=== PATIENT | male | born 1945 | race Caucasian/White ===

== ENCOUNTER 2017-04-25 19:48 | Emergency (ER) | payer MEDICARE, BC ==
[2017-04-25] MEDS ORDERED: SODIUM CHLORIDE 0.9% 1,000 ML IV ONE (20:38)
--- NOTE | 2017-04-25 20:38 | ED ---
General Adult HPI - General Chief complaint: Extremity Injury, Lower Stated complaint: Lower Extremity Injury Time Seen by Provider: 04/25/17 19:52 Source: EMS, RN notes reviewed, old records reviewed Mode of arrival: EMS Limitations: no limitations - History of Present Illness Initial comments: This is a 72-year-old male to the ER for evaluation. Patient is coming in for evaluation regarding right leg pain. Patient is slipper earlier hasn't right hip dislocation. 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 Patient is accepted in transfer after failed reduction at separate hospital - Related Data Home Medications Medication Instructions Recorded Confirmed Aspirin 325 mg PO DAILY 04/25/17 04/25/17 Betamethasone Dipropionate 1 applic TOPICAL DAILY 04/25/17 04/25/17 [Diprolene 0.05% Lotion] Calcipotriene [Dovonex] 1 applic TOPICAL BID 04/25/17 04/25/17 Clobetasol Propionate [Temovate 1 applic TOPICAL DAILY 04/25/17 04/25/17 0.05% Cream] Dicyclomine [Bentyl] 10 mg PO TID PRN 04/25/17 04/25/17 Fenofibrate Nanocrystallized 145 mg PO DAILY 04/25/17 04/25/17 [Tricor] Hyoscyamine Sulfate [Levsin] 0.125 mg PO Q4-6H PRN 04/25/17 04/25/17 Sildenafil Citrate [Viagra] 50 mg PO ONCE PRN 04/25/17 04/25/17 traZODone HCL 50 mg PO HS 04/25/17 04/25/17 Allergies Allergy/AdvReac Type Severity Reaction Status Date / Time No Known Allergies Allergy Unverified 04/25/17 20:21 Review of Systems ROS Statement: Those systems with pertinent positive or pertinent negative responses have been documented in the HPI. ROS Other: All systems not noted in ROS Statement are negative. Past Medical History Additional Past Medical History / Comment(s): colitis, sleep deprevation and high Triglycerides. History of Any Multi-Drug Resistant Organisms: None Reported Past Surgical History: Orthopedic Surgery Past Psychological History: No Psychological Hx Reported Smoking Status: Never smoker Past Alcohol Use History: Daily Past Drug Use History: None Reported General Exam - General Exam Comments Initial Comments: Right hip deformity Limitations: no limitations General appearance: alert, in no apparent distress Head exam: Present: atraumatic, normocephalic, normal inspection Eye exam: Present: normal appearance, PERRL, EOMI. Absent: scleral icterus, conjunctival injection, periorbital swelling ENT exam: Present: normal exam, mucous membranes moist Neck exam: Present: normal inspection. Absent: tenderness, meningismus, lymphadenopathy Respiratory exam: Present: normal lung sounds bilaterally. Absent: respiratory distress, wheezes, rales, rhonchi, stridor Cardiovascular Exam: Present: regular rate, normal rhythm, normal heart sounds. Absent: systolic murmur, diastolic murmur, rubs, gallop, clicks GI/Abdominal exam: Present: soft, normal bowel sounds. Absent: distended, tenderness, guarding, rebound, rigid Extremities exam: Present: normal inspection, full ROM, normal capillary refill. Absent: tenderness, pedal edema, joint swelling, calf tenderness Back exam: Present: normal inspection Neurological exam: Present: alert, oriented X3, CN II-XII intact Psychiatric exam: Present: normal affect, normal mood Skin exam: Present: warm, dry, intact, normal color. Absent: rash Course Vital Signs 04/25/17 04/25/17 04/25/17 19:51 21:07 21:15 Temperature 98.7 F Pulse Rate 69 80 75 Respiratory 18 20 Rate Blood Pressure 150/80 165/78 139/66 O2 Sat by Pulse 95 97 97 Oximetry 04/25/17 04/25/17 21:42 21:52 Temperature 97 F L Pulse Rate 77 78 Respiratory 16 18 Rate Blood Pressure 136/76 137/68 O2 Sat by Pulse 97 97 Oximetry - Reevaluation(s) Reevaluation #1: Spoke with orthopedics or N ER evaluating patient, they did and were able to replace hip under conscious sedation Procedures - Procedural Sedation Indications: fracture/dislocation reduction ASA Class: I Mallampati Airway Score: 1 Preparation: regional intermodal truck driver applied, pulse oximeter, capnometry used, supplemental O2 applied IV Propofol Dose (mgs): 100 Complications: none Interventions: oxygen applied Patient Tolerated Procedure: well Medical Decision Making - Medical Decision Making 72 male except in transfer for hip dislocation, dislocation was able to be relocated, patient to be discharged home - Radiology Data Radiology results: report reviewed (X-ray right hip shows improvement from prior x-ray, relocated), image reviewed Disposition Clinical Impression: Posterior dislocation of hip, Dislocation of internal right hip prosthesis Disposition: HOME SELF-CARE Condition: Undetermined Instructions: Hip Dislocation (ED) Referrals: Maury Looney DO [Primary Care Provider] - 1-2 days
[2017-04-25] MEDS ORDERED: PROPOFOL 10 MG/ML 20 ML VIAL IV STA (21:13)
--- NOTE | 2017-04-25 21:30 | XR ---
EXAMINATION TYPE: XR Hip Limited RT DATE OF EXAM: 04/25/2017 COMPARISON: Today HISTORY: Postreduction TECHNIQUE: Single view FINDINGS: There is a right hip prosthesis. Components appear in anatomic position. I see no fracture. IMPRESSION: There is anatomic reduction of the prosthetic hip dislocation compared to [facility] exam.
[2017-04-25 21:53] VITALS: BP 137/68; PULSE 78; RESP 18; TEMP 97
[2017-04-26] MEDS ORDERED: ENOXAPARIN 40 MG/0.4 ML SYRINGE SQ SCH (09:00)
--- NOTE | 2017-04-26 09:16 | CONS ---
CONSULTATION DATE OF CONSULTATION: 04/25/2017 CHIEF COMPLAINT: Right hip pain. HISTORY OF PRESENT ILLNESS: The patient is a very pleasant 72-year-old male who presents to the emergency department as a transfer with a right periprosthetic hip dislocation. The patient is accompanied in the ER by his sister and family friend. The patient was accepted as a transfer by the emergency department physician at [facility] without contacting Orthopedics. The patient has both hips replaced in [place]. The patient has had multiple problems with his right hip dislocating. He describes 7 prior dislocations of his right hip over the last year. The patient states that he previously had a hip dislocation in the area that could not be reduced in the ER or operating room, and had to be transferred to [place]. The patient lives in [place] during the winter and has an appointment in May to discuss revision surgery with the total joint surgeon there. Today, he is complaining of isolated pain in his right hip. He was going to go out hunting when his hip dislocated. He had immediate pain and inability to ambulate. He denies any other symptoms. PAST MEDICAL HISTORY PAST SURGICAL HISTORY, MEDICATIONS, ALLERGIES, SOCIAL HISTORY AND FAMILY HISTORY: Reviewed and are consistent with the emergency department history. PHYSICAL EXAMINATION: The patient is in no apparent distress and is alert and oriented x3. He is resting comfortably in the hospital bed. His head is normocephalic and atraumatic. He demonstrates nonlabored breathing with symmetric chest expansion. His abdomen is non- obese. A focused examination of the lower extremities was conducted. On inspection of the right leg, it is shortened and externally rotated. He has a healed incision over the lateral aspect of the hip with no overlying erythema or warmth. The thigh and calf were soft. He has pain with any passive range of motion of the hip. Distally, his right foot is neurovascularly intact. IMAGING: AP pelvis and 2 views of the right hip show a periprosthetic hip dislocation with no acute fractures. ASSESSMENT: The patient is a 72-year-old male with a history of recurrent right periprosthetic hip dislocation. PLAN: The patient underwent closed reduction of his hip dislocation in the emergency department under propofol sedation. The hip was easily reduced. Postreduction x-rays showed the prosthetic hip reduced. The patient was placed in a knee immobilizer. He was instructed to be toe-touch weightbearing on crutches. The patient will follow up with his orthopedic surgeon in [place] to discuss further revision surgery. The patient was discharged from the ER once stable. PROCEDURE: I discussed the potential risks and complications of a hip reduction with Mr. Soto and his family in the office. They provided their verbal consent. The emergency department physician Dr. Hines provided a propofol sedation. Once the patient was adequately sedated, a gentle closed reduction of the right hip was performed by flexing the hip and knee, adducting the leg and pulling gentle longitudinal traction, while internally and externally rotating the hip. There was a palpable and audible clunk as the hip reduced. Leg lengths were restored. A knee immobilizer was placed. Following reduction of the hip when the patient woken from his anesthetic, he was more comfortable. His right leg was neurovascularly intact. Postreduction x-rays showed the hip was reduced. DANIEL / URVASHI: [id number] /
--- NOTE | 2017-05-02 00:30 | PCN ---
Documentation Clarification OP Dear Joseph Johnson Please do addendum to ED report for missing sedation stop time. Thank you, Ginger Tineo Brooch And Bracelet Maker If you have any questions, please contact Cartography Technician at [phone] [facility]
== END 2017-04-25 21:55 | disposition home or self-care (01) ==
LOC: SUPCPDRO 19:48 → EC 19:48 → 3SUR 20:39 → UNDOADMIN 20:39 → EC 21:55
DX: T84.020A Dislocation of internal right hip prosthesis, initial encounter (principal); E78.1 Pure hyperglyceridemia; Z79.82 Long term (current) use of aspirin; Z79.899 Other long term (current) drug therapy; Z96.643 Presence of artificial hip joint, bilateral; Y79.2 Prosthetic and other implants, materials and accessory orthopedic devices associated with adverse incidents
CPT/HCPCS: 99284; 27265; 99152; 99153; 96360; 73501; J2704